=== PATIENT | male | born 1955 ===

== ENCOUNTER → 2021-07-12 | Outpatient (CLI) | payer MEDICARE | LOC: COL.RAD 07:34 | DX: R13.13 Dysphagia, pharyngeal phase (principal) ==

== ENCOUNTER 2021-07-17 08:45 | Outpatient (RCR) | payer OTHER, MEDICARE | END 2021-07-25 | disposition home or self-care (01) | LOC: WSST | DX: R13.13 Dysphagia, pharyngeal phase (principal) ==

== ENCOUNTER 2021-08-02 08:30 | Outpatient (RCR) | payer OTHER, MEDICARE | END 2021-08-24 | disposition home or self-care (01) | LOC: WSST | DX: R13.12 Dysphagia, oropharyngeal phase (principal) ==

== ENCOUNTER 2021-09-13 08:00 | Outpatient (RCR) | payer OTHER, MEDICARE | END 2021-09-24 | disposition home or self-care (01) | LOC: WSST | DX: R13.12 Dysphagia, oropharyngeal phase (principal) ==

== ENCOUNTER 2021-10-11 08:00 | Outpatient (RCR) | payer OTHER, MEDICARE | END 2021-10-24 | disposition home or self-care (01) | LOC: WSST | DX: R13.12 Dysphagia, oropharyngeal phase (principal); C02.9 Malignant neoplasm of tongue, unspecified; F80.89 Other developmental disorders of speech and language ==

== ENCOUNTER 2021-11-22 08:00 | Outpatient (RCR) | payer OTHER, MEDICARE | END 2021-11-24 | disposition home or self-care (01) | LOC: WSST | DX: R13.13 Dysphagia, pharyngeal phase (principal) ==